=== PATIENT | male | born 1965 | race African-American/Black ===

== ENCOUNTER 2016-12-08 03:15 | Emergency (ER) | payer MEDICAID ==
[~2016-12-08] VITALS: Ht 177.8 cm; Wt 86.9 kg
[~2016-12-08 03:15] MED LIST: ARIP20TA8 PO; FLUO20CA19 PO; GABA300C PO; HYDR-3343 PO; INSU100I28 SQ-INSULIN; INSU100V5 SQ-INSULIN; PARO20TA55 PO; QUET100T4 PO; SERT50TA PO; TRAZ50TA18 PO
[2016-12-08 03:55] LABS: HEMOGLOBIN 15.5 g/dL (13.7-18.0)
[2016-12-08 03:59] LABS: BLOOD UREA NITROGEN 12 mg/dL (7-18)
[2016-12-08 04:02] LABS: ASPARTATE AMINO TRANSFERASE 21 U/L (15-37)
[2016-12-08 04:11] LABS: DIFF TOTAL CELLS COUNTED 100 CELL DIFF
[2016-12-08 04:14] LABS: VERIFY COUNTS? YES
[2016-12-08 04:38] VITALS: BP 147/97
== END 2016-12-08 04:53 | disposition home or self-care (01) ==
LOC: ED 03:53
DX: N30.00 Acute cystitis without hematuria (principal); E10.65 Type 1 diabetes mellitus with hyperglycemia
CPT/HCPCS: 36415; 80053; 81001; 83690; 85025; 87077; 87086; 99284

== ENCOUNTER 2016-12-11 15:21 | Observation (INO) | payer MEDICAID ==
[~2016-12-11] VITALS: Ht 177.8 cm; Wt 90.0 kg
[2016-12-11] MEDS ORDERED: TRAZ50TA18 PO (15:35)
[2016-12-11] MEDS ORDERED: ZIPR80CA2 PO (15:35)
[2016-12-11] MEDS ORDERED: LORazepam 1MG TABLET PO ONE (16:00)
[2016-12-11] MEDS ORDERED: LORazepam 1MG TABLET ONE (16:12)
[2016-12-11 16:24] LABS: HEMOGLOBIN 14.3 g/dL (13.7-18.0)
[2016-12-11 16:27] LABS: ASPARTATE AMINO TRANSFERASE 26 U/L (15-37); BLOOD UREA NITROGEN 13 mg/dL (7-18)
[2016-12-11 16:30] LABS: ACETAMINOPHEN < 2 mcg/mL (10-30)
[2016-12-11] MEDS ORDERED: INSULIN REGULAR 100 UNITS/ML, 3ML VIAL SQ-INSULIN ONE (17:30)
[2016-12-11] MEDS ORDERED: INSULIN REGULAR 100 UNITS/ML, 3ML VIAL IVPush ONE (17:30)
[2016-12-11] MEDS ORDERED: SODIUM CHLORIDE 0.9% 1,000ML IVBOLUS ONE (17:30)
[2016-12-11 17:38] LABS: DAU SCREEN DISCLAIMER
[2016-12-11] MEDS ORDERED: INSULIN REGULAR 100 UNITS/ML, 3ML VIAL ONE (17:44)
[2016-12-11] MEDS ORDERED: POLYETHYLENE GLYCOL 17 GM PACKET PO PRN (22:30)
[2016-12-11] MEDS ORDERED: TRAZODONE 50MG TABLET PO PRN (22:30)
[2016-12-11] MEDS ORDERED: BISACODYL 10 MG SUPP PR PRN (22:30)
[2016-12-11] MEDS ORDERED: ONDANSETRON ODT 4 MG PO PRN (22:30)
[2016-12-11] MEDS ORDERED: DOCUSATE 100 MG CAPSULE PO PRN (22:30)
[2016-12-11] MEDS: INSULIN DETEMIR 100 UNITS/ML, PEN SQ-INSULIN SCH (22:30)
[2016-12-11 22:42] VITALS: BP 138/84
[2016-12-11] MEDS: NICOTINE 14MG/24 HR PATCH.TD24 TD SCH (23:58)
[2016-12-12] MEDS: INSULIN REGULAR 100 UNITS/ML, 3ML VIAL SQ-INSULIN SCH ×4 (07:00→22:17)
[2016-12-12 08:20] VITALS: BP 145/101
[2016-12-12] MEDS ORDERED: INSULIN REGULAR 100 UNITS/ML, 3ML VIAL IVPush ONE (09:00)
[2016-12-12] MEDS ORDERED: LABETALOL 5MG/ML, 20ML IVPush PRN (09:00)
[2016-12-12] MEDS: INSULIN DETEMIR 100 UNITS/ML, PEN SQ-INSULIN SCH ×2 (10:30→22:15)
[2016-12-12] MEDS: ZIPRASIDONE 20MG CAPSULE PO SCH ×2 (12:31→22:15)
[2016-12-12] MEDS: NICOTINE 14MG/24 HR PATCH.TD24 TD SCH (12:33)
[2016-12-12 13:26] VITALS: BP 155/92
[2016-12-12] MEDS: ENOXAPARIN 40 MG/0.4 ML SQ SCH (16:55)
[2016-12-12 19:33] VITALS: BP 155/90
[2016-12-13 01:18] VITALS: BP 147/78
[2016-12-13] MEDS: INSULIN REGULAR 100 UNITS/ML, 3ML VIAL SQ-INSULIN SCH ×4 (07:00→21:09)
[2016-12-13 07:48] VITALS: BP 140/89
[2016-12-13] MEDS: NICOTINE 14MG/24 HR PATCH.TD24 TD SCH (08:06)
[2016-12-13] MEDS: ZIPRASIDONE 20MG CAPSULE PO SCH ×2 (08:07→21:00)
[2016-12-13 10:16] VITALS: BP 128/80
[2016-12-13] MEDS: INSULIN DETEMIR 100 UNITS/ML, PEN SQ-INSULIN SCH ×2 (10:30→21:35)
[2016-12-13] MEDS: AMLODIPINE 2.5 MG TABLET PO SCH (11:35)
[2016-12-13] MEDS: ENOXAPARIN 40 MG/0.4 ML SQ SCH (16:00)
[2016-12-13 19:34] VITALS: BP 146/94
[2016-12-14 07:22] VITALS: BP 146/88
[2016-12-14] MEDS: INSULIN REGULAR 100 UNITS/ML, 3ML VIAL SQ-INSULIN SCH ×4 (07:55→20:03)
[2016-12-14] MEDS: AMLODIPINE 2.5 MG TABLET PO SCH (10:05)
[2016-12-14] MEDS: ZIPRASIDONE 20MG CAPSULE PO SCH ×2 (10:06→21:00)
[2016-12-14] MEDS: NICOTINE 14MG/24 HR PATCH.TD24 TD SCH (10:06)
[2016-12-14] MEDS: INSULIN DETEMIR 100 UNITS/ML, PEN SQ-INSULIN SCH ×2 (11:28→22:00)
[2016-12-14] MEDS: ENOXAPARIN 40 MG/0.4 ML SQ SCH (16:35)
[2016-12-14 19:22] VITALS: BP 126/79
[2016-12-15] MEDS: INSULIN REGULAR 100 UNITS/ML, 3ML VIAL SQ-INSULIN SCH (07:49)
[2016-12-15 08:01] VITALS: BP 142/95
[2016-12-15] MEDS: AMLODIPINE 2.5 MG TABLET PO SCH (08:14)
[2016-12-15] MEDS: NICOTINE 14MG/24 HR PATCH.TD24 TD SCH (08:14)
[2016-12-15] MEDS: ZIPRASIDONE 20MG CAPSULE PO SCH (08:15)
[2016-12-15] MEDS ORDERED: INSU100V5 SQ-INSULIN (10:43)
[2016-12-15] MEDS ORDERED: INSU100I28 SQ-INSULIN (10:43)
[2016-12-15] MEDS ORDERED: AMLO2.5T PO (10:43)
[2016-12-15] MEDS ORDERED: ZIPR20CA2 PO (10:43)
== END 2016-12-15 10:55 ==
LOC: ED 16:44 → EDIP 20:55 → 3E 22:32 → 3NE 12-12 11:57 → 3E 12-13 10:15
PROVIDERS: ADMIT Internal Medicine; ATTEND Internal Medicine
DX: R45.851 Suicidal ideations (principal); I10 Essential (primary) hypertension; E11.65 Type 2 diabetes mellitus with hyperglycemia; F32.9 Major depressive disorder, single episode, unspecified; F12.10 Cannabis abuse, uncomplicated; E87.1 Hypo-osmolality and hyponatremia; F15.10 Other stimulant abuse, uncomplicated; F29 Unspecified psychosis not due to a substance or known physiological condition; B19.20 Unspecified viral hepatitis C without hepatic coma; Z79.4 Long term (current) use of insulin; Z91.5 Personal history of self-harm
CPT/HCPCS: 36415; 80053; 80307; 80329; 81003; 82962; 83036; 85025; 93005; 96372; 96374; 96376; 99285; G0378; J1650; J1815; J7030; G0480

== ENCOUNTER 2016-12-20 05:39 | Emergency (ER) | payer MEDICAID ==
[~2016-12-20] VITALS: Ht 177.8 cm; Wt 85.0 kg
[~2016-12-20 05:39] MED LIST changes: +AMLO2.5T PO; +ZIPR20CA2 PO; +ZIPR80CA2 PO
[2016-12-20 05:40] VITALS: BP 116/70
[2016-12-20] MEDS ORDERED: LORazepam 1MG TABLET PO ONE (06:00)
[2016-12-20] MEDS ORDERED: LORazepam 1MG TABLET ONE (06:12)
[2016-12-20 06:29] LABS: BLOOD UREA NITROGEN 16 mg/dL (7-18)
[2016-12-20 06:32] LABS: ACETAMINOPHEN < 2 mcg/mL (10-30)
[2016-12-20 08:30] LABS: DAU SCREEN DISCLAIMER
== END 2016-12-20 09:26 | disposition home or self-care (01) ==
LOC: ED 06:17
DX: F32.0 Major depressive disorder, single episode, mild (principal); F41.1 Generalized anxiety disorder; F12.10 Cannabis abuse, uncomplicated; F15.10 Other stimulant abuse, uncomplicated; I10 Essential (primary) hypertension; E11.9 Type 2 diabetes mellitus without complications
CPT/HCPCS: 36415; 80048; 80307; 80329; 82040; 82962; 85025; 99284; G0480